=== PATIENT | female | born 1950 | race Two or more races ===

== ENCOUNTER 2017-08-27 08:52 | Outpatient (CLI) | payer OTHER ==
[~2017-08-27 08:52] MED LIST: AMOX1TAB12 PO; BACTROBAN OINT22 GM TP; NABUMETONE500 MG PO; PERCOCET 5/3251 TAB PO
== END 2017-08-27 09:03 | disposition home or self-care (01) ==
LOC: LAB 08:52
DX: D69.9 Hemorrhagic condition, unspecified (principal)